=== PATIENT | female | born 1980 | race Two or more races ===

== ENCOUNTER 2025-02-18 20:45 | Emergency (ER) | payer BC, SELFPAY ==
[2025-02-18 20:46] VITALS: BMI 43.2
[2025-02-18 20:54] VITALS: BP 185/110; BP 190/113; PULSE 100; RESP 20; TEMP 36.8; O2SAT 97
--- NOTE | 2025-02-18 20:59 | XR_ITS ---
Examination: Soft tissue lateral neck single view Technique: Soft tissue lateral neck single view Exam date and time: February 18, 2025 2213 hrs. Indications: Patient swallowed a toothpick today Findings: No opaque foreign body noted Normal epiglottis Mild prevertebral soft tissue prominence Impression: No opaque foreign body seen
--- NOTE | 2025-02-18 21:00 | PD.EDRME ---
Rapid Medical Screening Exam RME Arrival date/time: 02/18/25 20:45 44 yo f present to ED for c/o of swallowing toothpick I have greeted and performed a focused initial assessment of this patient. A comprehensive ED assessment and evaluation of the patient, analysis of all test results, and completion of the medical decision making process will be conducted by additional ED providers. Chief Complaint: Dental/Oral/Throat Time Seen by Provider: 02/18/25 20:51 Vital signs: Vital Signs Temperature 98.3 F 02/18/25 20:54 Pulse Rate 100 02/18/25 20:54 Respiratory Rate 20 02/18/25 20:54 Blood Pressure 190/113 H 02/18/25 20:54 Pulse Oximetry (%) 97 02/18/25 20:54
--- NOTE | 2025-02-18 21:41 | PRELIM_ITS ---
Radiograph of the neck (single view). February 18, 2025 at 2207 hours Clinical history: Swallow foreign body Comparison: No prior study is available for comparison. Findings: The visualized airway is unremarkable. There is no prevertebral soft tissue swelling. The osseous structures are unremarkable. No radiopaque foreign bodies identified. Impression: Unremarkable radiograph of the neck. No radiopaque foreign bodies identified. Report Electronically Signed By: Hamilton Mendez 02/18/2025 9:40:09 PM [EST]
--- NOTE | 2025-02-19 00:59 | PD.EDADULT ---
ED General RME/HPI General Chief complaint: Dental/Oral/Throat Stated complaint: toothpick in throat Time Seen by Provider: 02/18/25 20:51 Arrival date/time: 02/18/25 20:45 44-year-old female presents to the ED with a chief complaint of right-sided neck foreign body sensation. Patient states through print room worker that she swallowed half a toothpick while eating a sausage. She states her puts half of a toothpick in each corner of the sausage. She immediately felt the foreign body sensation after she swallowed the bite of sausage. She has been having a tickle type cough ever since. The injury occurred just prior to her arrival. She does have painful swallowing of water. Mode of arrival: ambulatory Limitations: language barrier (Human Anatomy Teacher line utilized.) RME / HPI RME / HPI narrative: 02/18/25 20:45 44 yo f present to ED for c/o of swallowing toothpick I have greeted and performed a focused initial assessment of this patient. A comprehensive ED assessment and evaluation of the patient, analysis of all test results, and completion of the medical decision making process will be conducted by additional ED providers. Onset (ago): minute(s) (Prior to arrival) Location: mouth (Throat) Quality: sharp and constant Consistency: constant Relieving factors: none Exacerbating factors: other (Swallowing) Associated symptoms: cough Treatments prior to arrival: none Related Data Previous Rx's ?Medication ?Instructions ?Recorded aluminum-mag hydroxide-simethicone 10 ml PO Q4H #120 mL 02/19/21 200 mg-200 mg-20 mg/5 mL oral susp famotidine 40 mg tablet (Pepcid) 40 mg PO QDAY #14 tabs 02/19/21 albuterol sulfate 90 mcg/actuation 2 puff inhalation Q6H PRN 02/19/24 aerosol inhaler shortness of breath or wheezing #8.5 grams prednisone 50 mg tablet 50 mg PO QDAY #5 tabs 02/19/24 albuterol sulfate 90 mcg/actuation 2 inh inhalation Q6H #1 ea 03/13/24 breath activated powder inhaler,sensor (Proair Digihaler) montelukast 10 mg tablet 10 mg PO QPM #30 tabs 03/13/24 (Singulair) prednisone 50 mg tablet 50 mg PO QDAY #5 tabs 03/13/24 Allergies Allergy/AdvReac Type Severity Reaction Status Date / Time No Known Allergies Allergy Verified 02/18/25 20:51 Review of Systems Review of Systems Systems Reviewed: All systems reviewed, normal except as documented ED Exam Narrative Physical exam: Healthy, well-appearing 44-year-old female sitting on bed. She has a tickle type cough noted. She points to the right side of her neck for the location of her discomfort. Lungs are clear, cardiovascular regular rate and rhythm without murmurs. No stridor is noted. Throat exam reveals mild erythema to the posterior pharynx. No bleeding is noted. General Limitations: Present language barrier (Human Anatomy Teacher line utilized.) General appearance: Present alert and in no apparent distress Head Head exam: Present atraumatic and normal inspection Eye Eye exam: Present normal appearance, scleral icterus and conjunctival injection ENT ENT exam: Present normal exam Neck Neck exam: Present normal inspection, trachea midline and tenderness; Absent lymphadenopathy Chest Chest inspection: Present normal inspection Respiratory Respiratory exam: Present normal lung sounds bilaterally; Absent respiratory distress, wheezes or stridor Cardiovascular Cardiovascular exam: Present regular rate, normal rhythm and normal heart sounds; Absent systolic murmur or diastolic murmur Abdominal Exam Abdominal exam: Absent distention Extremities Exam Extremities exam: Present normal inspection Back Exam Back exam: Present full ROM Neurological Exam Neurological exam: Present alert and oriented X3 Psychiatric Psychiatric exam: Present normal affect and normal mood Skin Skin exam: Present warm, dry, intact and normal color Course Course Course Narrative: 44-year-old female presents to the ED with a chief complaint of right-sided neck foreign body sensation. Patient states through print room worker that she swallowed half a toothpick while eating a sausage. She states her puts half of a toothpick in each corner of the sausage. She immediately felt the foreign body sensation after she swallowed the bite of sausage. She has been having a tickle type cough ever since. The injury occurred just prior to her arrival. She does have painful swallowing of water. Healthy, well-appearing 44-year-old female sitting on bed. She has a tickle type cough noted. She points to the right side of her neck for the location of her discomfort. Lungs are clear, cardiovascular regular rate and rhythm without murmurs. No stridor is noted. Throat exam reveals mild erythema to the posterior pharynx. No bleeding is noted. X-ray soft tissue neck: Unremarkable radiograph of the neck. No radiopaque foreign bodies identified. CT soft tissue neck without contrast has been ordered and pending. Quality Measures none Orders Category Date Time Status CT soft tissue neck wo con Stat Exams 02/19/25 00:57 Ordered XR soft tissue neck Stat Exams 02/18/25 20:59 Taken Vital Signs Vital signs: Vital Signs Temperature 98.3 F 02/18/25 20:54 Pulse Rate 100 02/18/25 20:54 Respiratory Rate 20 02/18/25 20:54 Blood Pressure 190/113 H 02/18/25 20:54 Pulse Oximetry (%) 97 02/18/25 20:54 [facility] Patient data External records reviewed:: None Clinical information provided by:: patient Social determinants that could affect healthcare access:: none Patient has the following chronic illnesses:: How is presenting disease/condition affected by chronic disease/condition?: no chronic disease Evaluation data The following diagnostics were reviewed and interpreted by me:: radiology exam(s) Lab and/or radiology exams considered but not ordered:: None Interpretation Summary: X-ray neck soft tissue negative for acute foreign body. Medications Medications considered but not ordered:: None Medication administrations:: None Consultations Consultation(s) initiated? (list below): No Diagnosis Differential Diagnosis ED Complaint MDM: Wooden foreign body swallowed versus foreign body sensation Most likely diagnosis given after review of the tests above:: Foreign body swallowed Admission Indicated Admission indicated?: not indicated (Unknown) Explain why admission is indicated or not indicated:: Unknown Admission Request Was there a request for admission?: No Disposition Plan Disposition Plan: other (specify) (Unknown at this time.) Medical Decision Making MDM Narrative MDM Narrative: 44-year-old female presents to the ED with a chief complaint of right-sided neck foreign body sensation. Patient states through print room worker that she swallowed half a toothpick while eating a sausage. She states her puts half of a toothpick in each corner of the sausage. She immediately felt the foreign body sensation after she swallowed the bite of sausage. She has been having a tickle type cough ever since. The injury occurred just prior to her arrival. She does have painful swallowing of water. Healthy, well-appearing 44-year-old female sitting on bed. She has a tickle type cough noted. She points to the right side of her neck for the location of her discomfort. Lungs are clear, cardiovascular regular rate and rhythm without murmurs. No stridor is noted. Throat exam reveals mild erythema to the posterior pharynx. No bleeding is noted. X-ray soft tissue neck: Unremarkable radiograph of the neck. No radiopaque foreign bodies identified. CT soft tissue neck without contrast has been ordered and pending. Sign out to jacqueline Lewis 2:45am. Differential Diagnosis Differential Diagnosis: Wooden foreign body swallowed versus foreign body sensation Radiology Data Radiology results reviewed: Yes I reviewed the patient's radiology results. Radiology results narrative: X-ray neck, soft tissue findings: The visualized airway is unremarkable. There is no prevertebral soft tissue swelling. The osseous structures are unremarkable. No radiopaque foreign bodies identified. Impression: Unremarkable radiograph of the neck. No radiopaque foreign bodies identified. Discharge Plan Prescriptions/Referrals Prescriptions/Med Rec: No Action famotidine [Pepcid] 40 mg tablet 40 mg PO QDAY Qty: 14 0RF alum-mag hydroxide-simeth 200-200-20 mg/5 mL suspension 10 ml PO Q4H Qty: 120 0RF Rx Instructions: administer between meals and at bedtime albuterol sulfate 90 mcg/actuation HFA aerosol inhaler 2 puff inhalation Q6H PRN (Reason: shortness of breath or wheezing) Qty: 8.5 0RF prednisone 50 mg tablet 50 mg PO QDAY Qty: 5 0RF Proair Digihaler 90 mcg/actuation aero powdr breath act w/sensor 2 inh inhalation Q6H Qty: 1 0RF prednisone 50 mg tablet 50 mg PO QDAY Qty: 5 0RF montelukast [Singulair] 10 mg tablet 10 mg PO QPM Qty: 30 0RF Referrals: No Primary/Family,Physician [Primary Care Provider] - In 1 week Patient/Caregiver Discharge Instructions Print Language: Citizen Of [place]
--- NOTE | 2025-02-19 03:39 | PC.NURSE ---
PATIENT ELOPED THE ER PER SECURITY.
--- NOTE | 2025-02-19 03:48 | PD.EDADDENDU ---
Emergency Room Addendum Addendum Narrative: This Patient WAS NOT Signed out to me at 0245 and signed out toe CHANTEL Blackman. 0349: The Nurse reported to me the patient is no where top be found . We have called CT to see if the patient was in CT, and the patient is not there as per DAISHA Jimenez.
== END 2025-02-19 03:40 | disposition left against medical advice (07) ==
PROVIDERS: Emergency Provider Emergency Medicine
DX: R09.A2 Foreign body sensation, throat (principal); Z53.29 Procedure and treatment not carried out because of patient's decision for other reasons
CPT/HCPCS: 70360; 99283

== ENCOUNTER 2025-04-24 18:09 | Inpatient (IN) | payer MEDICAID, SELFPAY ==
[2025-04-24 18:10] VITALS: BMI 41.3
[2025-04-24 18:40] VITALS: BP 186/118; BP 199/110; PULSE 73; RESP 18; TEMP 36.8; O2SAT 100
--- NOTE | 2025-04-24 19:32 | XR_ITS ---
Examination: CT abdomen with intravenous contrast CT pelvis with intravenous contrast 2-D coronal reconstructions 2-D sagittal reconstructions Date and time of exam:April 24, 2025 2044 hours INDICATIONS: Epigastric pain beginning 2 days ago COMPARISON: January 11, 2016. CTDI: vol (mGy) 12.4 DLP: (mGycm) 635 Technique: Multiple axial sections of the abdomen and pelvis have been obtained. 64 slice high-resolution scanner used. 3 mm axial sections have been obtained, post intravenous injection 60 cc [id number] 2-D sagittal, coronal reconstructions obtained. Low dose protocols were performed. One or more of the following dose reduction techniques were used; automated exposure control, adjustment of the mA and/or KV according to patient size, use of iterative reconstruction technique. Findings: No focal liver or splenic lesions 27 mm upper abdominal wall hernia defect containing incarcerated fat No pancreatic mass Absent gallbladder No extrahepatic biliary ductal dilatation No renal or ureteral calculi, no hydronephrosis No bowel obstruction Normal appendix No diverticulitis Anteverted uterus No adnexal mass No bladder mass or bladder calculi The osseous structures are intact IMPRESSION: 27 mm upper abdominal wall hernia defect containing incarcerated fat No extrahepatic biliary ductal dilatation Normal appendix
--- NOTE | 2025-04-24 19:33 | PD.EDRME ---
Rapid Medical Screening Exam RME Arrival date/time: 04/24/25 18:09 44F with history of HTN and cholecystectomy presents to ED with 2 days of epigastric pain. Patient went sent here to r/o hernia. Patient denies N/V, diarrhea, and dysuria/hematuria. Patient is currently on her period. . Chief Complaint: Abdominal Pain Time Seen by Provider: 04/24/25 21:36 Vital signs: Vital Signs Temperature 98.2 F 04/24/25 18:40 Pulse Rate 73 04/24/25 18:40 Respiratory Rate 18 04/24/25 18:40 Blood Pressure 199/110 H 04/24/25 18:40 Pulse Oximetry (%) 100 04/24/25 18:40 Oxygen Delivery Method Room Air 04/24/25 18:40 Vital signs reviewed by provider: Yes
[2025-04-24 19:54] LABS: Collection Type, Urine Clean Catch
[2025-04-24 19:57] LABS: Bilirubin,Urine 1+ (Negative); Blood,Urine 3+ (Negative); Clarity,Urine Clear (Clear/Hazy); Color,Urine Drk Red (Lt Yel-Yel); Glucose, Urine Negative (Negative); Ketones,Urine Trace (Negative); Leukocyte Esterase,Urine Trace (Negative); Nitrite,Urine Positive (Negative); PH,Urine 5.5 (5.0-7.0); Protein,Urine 2+ (Neg - Trace); Specific Gravity,Urine >= 1.030 (1.001-1.035)
[2025-04-24 19:58] LABS: Culture Indicated,Urine Yes
[2025-04-24 20:00] LABS: Amorphous Crystals,Urine Present (Absent); RBC,Urine 9050 /hpf (0-3); Squamous Epithelial Cell,Urine 8 /hpf (0-5); WBC,Urine 3 /hpf (0-5)
[2025-04-24 20:05] LABS: HCG Qualitative,Urine Negative
[2025-04-24 20:39] LABS: Basophils # (Auto) 0.1 Thou/mm3 (0.0-0.2); Basophils % (Auto) 1 % (0-2.5); Eosinophils # (Auto) 0.2 Thou/mm3 (0.0-0.5); Eosinophils % (Auto) 2 % (0-10); Hematocrit 36.4 % (36.0-46.0); Hemoglobin 12.4 g/dL (12.0-16.0); Immature Granulocytes % (Auto) 0 % (0-0); Immature Granulocytes Auto 0.04 Thou/mm3 (0.00-0.00); Lymphocytes # (Auto) 3.3 Thou/mm3 (1.0-4.8); Lymphocytes % (Auto) 29 % (10-50); Mean Corpuscular HGB Conc 34.1 g/dl (31.0-37.0); Mean Corpuscular Volume 85 fL (80-100); Monocytes % (Auto) 9 % (0-12); Neutrophils # (Auto) 6.8 Thou/mm3 (1.8-7.7); Neutrophils % (Auto) 59 % (37-80); Nucleated Red Blood Cell % 0 /100 WBC (0); Platelet Count 317 Thou/mm3 (140-440); RDW Standard Deviation 41.1 fL (36.4-46.3); Red Blood Count 4.28 Miln/mm3 (4.00-5.20); White Blood Count 11.5 Thou/mm3 (3.6-11.0)
[2025-04-24 20:54] LABS: Alanine Aminotransferase 26 U/L (10-49); Albumin, Serum 4.7 gm/dL (3.5-5.0); Albumin/Globulin Ratio 1.7 (1.2-2.2); Alkaline Phosphatase 169 U/L (46-116); Anion Gap 9 (7-16); Aspartate Amino Transferase 26 U/L (0-34); BUN/Creatinine Ratio 21 Ratio (12-20); Bilirubin,Total 0.4 mg/dL (0.3-1.2); Blood Urea Nitrogen 15 mg/dL (9-23); Calcium 9.8 mg/dL (8.3-10.6); Calcium (Corrected) 9.8 mg/dL (8.5-10.1); Carbon Dioxide 25.9 mMol/L (20.0-31.0); Chloride 104 mMol/L (98-107); Creatinine (Component) 0.7 mg/dL (0.6-1.3); Estimated Creatinine Clearance 103.2 mL/min (>60); Globulin 2.8 gm/dL (2.3-3.5); Glucose 101 mg/dL (74-106); Lipase 36 U/L (12-53); Osmolality,Calculated 278 (275-295); Potassium 3.6 mMol/L (3.4-5.1); Sodium 139 mMol/L (136-145); Total Protein 7.5 gm/dL (5.7-8.2); eGFR > 60 See Note
--- NOTE | 2025-04-24 21:45 | PC.NURSE ---
Continuous Conveyor Screen Drier assumes care of patient at this time, pt c/o epigastric pain x 2 days with N/V reported, pt denies any trauma and rates pain 07/18
[2025-04-24 21:51] VITALS: BP 165/115; PULSE 70; RESP 18; TEMP 36.7; O2SAT 100
--- NOTE | 2025-04-24 22:11 | PD.EDABDPN ---
ED Abdominal Pain RME/HPI General Chief Complaint: Abdominal Pain Stated complaint: ABD PAIN; SENT BY PCP FOR POSS HERNIA Time seen by provider: 04/24/25 21:36 Arrival date/time: 04/24/25 18:09 Source: patient Limitations: no limitations RME / HPI RME / HPI narrative: 04/24/25 18:09 44F with history of HTN and cholecystectomy presents to ED with 2 days of epigastric pain. Patient went sent here to r/o hernia. Patient denies N/V, diarrhea, and dysuria/hematuria. Patient is currently on her period. She has no fevers or chills. She states she is not experienced before. Related Data Previous Rx's ?Medication ?Instructions ?Recorded aluminum-mag hydroxide-simethicone 10 ml PO Q4H #120 mL 02/19/21 200 mg-200 mg-20 mg/5 mL oral susp famotidine 40 mg tablet (Pepcid) 40 mg PO QDAY #14 tabs 02/19/21 albuterol sulfate 90 mcg/actuation 2 puff inhalation Q6H PRN 02/19/24 aerosol inhaler shortness of breath or wheezing #8.5 grams prednisone 50 mg tablet 50 mg PO QDAY #5 tabs 02/19/24 albuterol sulfate 90 mcg/actuation 2 inh inhalation Q6H #1 ea 03/13/24 breath activated powder inhaler,sensor (Proair Digihaler) montelukast 10 mg tablet 10 mg PO QPM #30 tabs 03/13/24 (Singulair) prednisone 50 mg tablet 50 mg PO QDAY #5 tabs 03/13/24 Allergies Allergy/AdvReac Type Severity Reaction Status Date / Time No Known Allergies Allergy Verified 04/24/25 18:12 Review of Systems Review of Systems Systems Reviewed: All systems reviewed, normal except as documented ED Exam General Limitations: Present no limitations General appearance: Present alert and in distress Head Head exam: Present atraumatic Eye Eye exam: Present normal appearance, PERRL and EOMI ENT ENT exam: Present normal exam, normal oropharynx and mucous membranes moist Neck Neck exam: Present normal inspection, full ROM and trachea midline Chest Chest inspection: Present normal inspection and symmetric chest wall rise Respiratory Respiratory exam: Present normal lung sounds bilaterally Cardiovascular Cardiovascular exam: Present regular rate, normal rhythm and normal heart sounds Abdominal Exam Abdominal exam: Present soft, normal bowel sounds and other (There is a 4 to 5 cm firm mass at the midline of the ventral region that is tender. No warmth is appreciated. This was not reducible.) Extremities Exam Extremities exam: Present normal inspection and full ROM Back Exam Back exam: Present normal inspection and full ROM Neurological Exam Neurological exam: Present alert, oriented X3 and CN II-XII intact Psychiatric Psychiatric exam: Present normal affect and normal mood Skin Skin exam: Present warm, dry, intact and normal color Course Quality Measures none Orders Category Date Time Status Aspiration precautions NOW Care 04/24/25 22:08 Active COVID-19 Screening Questionnaire NOW Care 04/24/25 22:[address] Screening NOW Care 04/24/25 19:33 Active Decision to Admit X1 Care 04/24/25 22:08 Active Insert IV NOW Care 04/24/25 19:32 Active NPO NOW Care 04/24/25 22:08 Active Diet NPO (NOW) Diet 04/24/25 22:[address] abdomen pelvis w con Stat Exams 04/24/25 19:32 Completed CBC Stat Lab 04/24/25 20:23 Completed CMP [Comprehensive Metabolic Panel] Stat Lab 04/24/25 20:23 Completed HCG Qualitative,Urine Stat Lab 04/24/25 19:47 Completed Lactic Acid [Lactate (Lactic Acid)] Stat Lab 04/24/25 21:29 Ordered Lipase Stat Lab 04/24/25 20:23 Completed Urinalysis, C/S if Indicated Stat Lab 04/24/25 19:47 Completed Urine Culture Stat Lab 04/24/25 19:47 Received Vital Signs Vital signs: Vital Signs Temperature 98.2 F 04/24/25 18:40 Pulse Rate 73 04/24/25 18:40 Respiratory Rate 18 04/24/25 18:40 Blood Pressure 199/110 H 04/24/25 18:40 Pulse Oximetry (%) 100 04/24/25 18:40 Oxygen Delivery Method Room Air 04/24/25 18:40 Abdominal Pain MDM MDM Narrative MDM Narrative:: 44-year-old female with a remote history of cholecystectomy in 2010 and a history hypertensions here to the 1 day history of nausea, no vomiting, and abdominal pain. She has no urinary complaints. No fevers or chills. On exam patient is ill-appearing but nontoxic-appearing. She has a Nonreducible mass at the midline of her abdomen. Serum workup essentially unremarkable. CT findings are concerning for incarcerated fat-containing hernia. Dr. Anne was consulted and would like the patient admitted to medicine. Will keep her NPO. Case discussed with internal medicine except the patient. Patient data External records reviewed:: Other (specify) Clinical information provided by:: patient Social determinants that could affect healthcare access:: none Patient has the following chronic illnesses:: Hypertension How is presenting disease/condition affected by chronic disease/condition?: no chronic disease Evaluation data The following diagnostics were reviewed and interpreted by me:: lab results and radiology exam(s) (No bowel obstruction. There is a fat-containing ventral hernia.) Lab and/or radiology exams considered but not ordered:: No leukocytosis or lactic acidosis Interpretation Summary: Radiology report is concerning for fat-containing incarcerated hernia. Medications / Prescriptions Medications or Prescriptions considered but not ordered:: n/a Medication administrations:: Morphine, Zofran Consultations Consultation(s) initiated? 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 Discussed patients ED course, exam findings, labs, and radiology results. The Hospitalist [agrees,declines] to accept the patient for admission. Disposition Plan Disposition Plan: Admit Discharge Plan Plan Patient Disposition: Admit Acute Care w/in Hospital Patient condition on transfer: Stable Prescriptions/Referrals Prescriptions/Med Rec: No Action famotidine [Pepcid] 40 mg tablet 40 mg PO QDAY Qty: 14 0RF alum-mag hydroxide-simeth 200-200-20 mg/5 mL suspension 10 ml PO Q4H Qty: 120 0RF Rx Instructions: administer between meals and at bedtime albuterol sulfate 90 mcg/actuation HFA aerosol inhaler 2 puff inhalation Q6H PRN (Reason: shortness of breath or wheezing) Qty: 8.5 0RF prednisone 50 mg tablet 50 mg PO QDAY Qty: 5 0RF Proair Digihaler 90 mcg/actuation aero powdr breath act w/sensor 2 inh inhalation Q6H Qty: 1 0RF prednisone 50 mg tablet 50 mg PO QDAY Qty: 5 0RF montelukast [Singulair] 10 mg tablet 10 mg PO QPM Qty: 30 0RF Referrals: Favio Pugh MD [Primary Care Provider] - In 1 week Problem List Clinical Impression: Abdominal pain, Incarcerated hernia Patient/Caregiver Discharge Instructions Print Language: Nepali Stand Alone Forms: Delia Award Info., Patient Portal Info Letter
[2025-04-24 22:16] LABS: Lactate (Lactic Acid) 1.2 mMol/L (0.4-2.0)
--- NOTE | 2025-04-24 22:40 | ESHP_ITS ---
<Statement entered by Qi Horn MD - 04/25/25 00:07> I Qi Horn MD reviewed the note and agree with the resident's assessment & plan with exceptions as below. I have personally reviewed labs, imaging, home meds/prior records, examined the patient, formulated and discussed management plan with the IM team. A 44-year-old female with history of asthma presented with abdominal pain noted to have incarcerated abdominal wall hernia and hypertension. General surgery is consulted and plan for hernia repair likely tomorrow. Will provide IV fluid resuscitation, keep n.p.o. overnight except meds, empirically treat with Rocephin and metronidazole with adequate pain control with IV morphine. Documentation for date of: 04/24/25 HPI History of Present Illness Chief complaint: Abdominal pain History of present illness: 44-year-old female with past medical history of hypertension who presented to the ED due to abdominal pain. Patient states that she has been having abdominal pain since Wednesday, April 21, 2025 that has progressively gotten worse. She states that currently the pain is rated a 9 out of 10 with profuse tenderness to even light palpation. Patient denies nausea and vomiting however does endorse some subjective chills. She states her last bowel movement and last meal was 04/24/2025, denies any blood in the stool. Patient denies any fever, shortness of breath, chest pain, nausea, vomiting, recent travel, sick contacts. In the ED patient had CT scan done which showed 27 mm upper abdominal wall hernia defect containing incarcerated fat, ER spoke to general surgeon Dr. Anne who recommended admission for possible surgical intervention. ED course: ED vitals: BP 199/110, HR 73, RR 18, saturating 100% on room air ED labs: Leukocytosis, alk phos 169, UA shows positive nitrites 3+ blood with [address] abdomen/pelvis showed 27 mm upper abdominal wall hernia defect containing incarcerated fat PMHx: As above SX Hx: Cholecystectomy Social Hx: Denies cigarette use, denies alcohol use, denies illicit substances including THC FH X: Unknown Review of Systems Review of Systems Systems Reviewed: All systems reviewed, normal except as documented Narrative Review of Systems: All 12 systems reviewed and found negative unless otherwise stated in HPI. Exam Vital Signs Temp Pulse Resp BP Pulse Ox O2 Del Method 98.0 F 70 18 165/115 H 100 Room Air 04/24/25 21:51 04/24/25 21:51 04/24/25 21:51 04/24/25 21:51 04/24/25 21:51 04/24/25 21:51 Narrative Exam Physical Exam GENERAL: NAD, AAOx3 HEENT: Moist mucosa. Eyes open, symmetrical, & clear CARDIO: Heart RRR, no obvious murmurs PULM: No noted coughing/dyspnea CTA B/L, no R/W/R GI: Abdomen soft, nondistended, diffuse pain on light palpation SKIN/MSK/EXT: No wounds/rashes/edema/amputations, no pain on palpation. Pedal pulses present B/L NEURO: AAOx3, no focal neuro deficits, able to move all 4 extremities Results: Labs 04/24/25 20:23 04/24/25 20:23 Labs: Short CBC 04/24/25 Range/Units 20:23 WBC 11.5 H (3.6-11.0) Thou/mm3 Hgb 12.4 (12.0-16.0) g/dL Hct 36.4 (36.0-46.0) % Plt Count 317 (140-440) Thou/mm3 BMP 04/24/25 20:23 Sodium 139 Potassium 3.6 Chloride 104 Carbon Dioxide 25.9 BUN 15 Creatinine 0.7 Glucose 101 Calcium 9.8 Liver Function 04/24/25 Range/Units 20:23 Total Bilirubin 0.4 (0.3-1.2) mg/dL AST 26 (0-34) U/L ALT 26 (10-49) U/L Alkaline Phosphatase 169 H (46-116) U/L Albumin 4.7 (3.5-5.0) gm/dL Urine 04/24/25 Range/Units 19:47 Urine Color Drk Red A (Lt Yel-Yel) Urine Clarity Clear (Clear/Hazy) Urine pH 5.5 (5.0-7.0) Ur Specific [place] >= 1.030 (1.001-1.035) Urine Protein 2+ A (Neg - Trace) Urine Glucose (UA) Negative (Negative) Quality Measures Quality Measures none Medications Home Medications and Allergies Allergies Allergy/AdvReac Type Severity Reaction Status Date / Time No Known Allergies Allergy Verified 04/24/25 18:12 Visit Medications Acetaminophen (Acetaminophen 325 Mg Tablet) 650 mg PO Q6H PRN PRN Reason: Fever >99.5 Stop: 05/24/25 22:31 Acetaminophen (Acetaminophen 325 Mg Tablet) 1,000 mg PO Q6H PRN PRN Reason: PAIN SCALE 1-3 (mild Stop: 05/24/25 22:31 Sodium Chloride (Ns) 1,000 mls @ 75 mls/hr IV .[id number] SEA Stop: 05/24/25 22:44 Ondansetron HCl (Ondansetron Inj 2 Mg/Ml Inj 2 Ml) 4 mg IVP Q6H PRN; Protocol PRN Reason: NAUSEA OR VOMITING Stop: 05/24/25 22:31 Pantoprazole Sodium (Pantoprazole Inj 40 Mg Vial) 40 mg IVP QDAY [facility] Stop: 05/25/25 08:59 Assessment & Plan Plan 44-year-old female with past medical history of hypertension who presented to the ED due to abdominal pain. In the ED patient had CT scan done which showed 27 mm upper abdominal wall hernia defect containing incarcerated fat, ER spoke to general surgeon Dr. Anne who recommended admission for possible surgical intervention. #Upper abdominal wall hernia defect containing incarcerated fat Patient came in with 9 out of 10 abdominal pain getting worse with some subjective chills As per CT scan findings ED spoke to general surgery who recommended keep n.p.o. for possible surgical intervention Patient is passing flatus and having bowel movements denies nausea vomiting does endorse chills ? N.p.o. ? IV fluids at 75 cc/h ? Morphine for pain control ? General Surgery consulted, appreciate recs #Hypertension At this time likely secondary to pain ? Med rec ordered resume antihypertensives as tolerated and reconciled Health Maintenance: Disposition: MedSurg Fluids: NS Feeding: N.p.o. Thrombo prophylaxis: SCDs Gastric Ulcer prophylaxis: Pantoprazole CODE STATUS: Full code Case discussed with my attending Dr. Kory Pugh MD PGY-1 Disclaimer: Despite multiple revisions, due to the dictation software being used, the document bellow may not be free of grammatical errors including phonetic/typographic errors. However, this does not deter from our commitment to providing health care in the patient's best interest in mind.
[2025-04-24] MEDS: MORPHINE SULF INJ 10 MG/ML VIAL 2 MG IVP (22:57)
[2025-04-24] MEDS: SODIUM CHLORIDE 0.9% 1000 ML 1,000 ML 75 ML IV (22:57)
[2025-04-24] MEDS: ONDANSETRON INJ 2 MG/ML INJ 2 ML 4 MG IVP (22:58)
[2025-04-25] VITALS (21 sets, daily range): BP systolic 129–179; BP diastolic 79–98; PULSE 66–101; RESP 16–98; TEMP 36.1–36.7; O2SAT 92–100
--- NOTE | 2025-04-25 00:36 | PC.NURSE ---
Report called to floor nurse, GERA Haskins
[2025-04-25] MEDS: hydrALAZINE INJ 20 MG/ML VIAL 10 MG IVP (00:57)
[2025-04-25] MEDS: HYDROmorphone INJ 2 MG/ML VIAL 0.5 MG IVP (02:15)
[2025-04-25 05:42] LABS: Basophils # (Auto) 0.1 Thou/mm3 (0.0-0.2); Basophils % (Auto) 1 % (0-2.5); Eosinophils % (Auto) 0 % (0-10); Hematocrit 37.9 % (36.0-46.0); Hemoglobin 12.7 g/dL (12.0-16.0); Immature Granulocytes % (Auto) 1 % (0-0); Immature Granulocytes Auto 0.07 Thou/mm3 (0.00-0.00); Lymphocytes # (Auto) 1.6 Thou/mm3 (1.0-4.8); Lymphocytes % (Auto) 12 % (10-50); Mean Corpuscular HGB Conc 33.5 g/dl (31.0-37.0); Mean Corpuscular Volume 87 fL (80-100); Monocytes # (Auto) 0.8 Thou/mm3 (0.0-0.8); Monocytes % (Auto) 6 % (0-12); Neutrophils # (Auto) 10.8 Thou/mm3 (1.8-7.7); Neutrophils % (Auto) 81 % (37-80); Nucleated Red Blood Cell % 0 /100 WBC (0); Platelet Count 307 Thou/mm3 (140-440); RDW Standard Deviation 41.4 fL (36.4-46.3); Red Blood Count 4.38 Miln/mm3 (4.00-5.20); White Blood Count 13.3 Thou/mm3 (3.6-11.0)
[2025-04-25 06:06] LABS: Alanine Aminotransferase 69 U/L (10-49); Albumin, Serum 4.2 gm/dL (3.5-5.0); Albumin/Globulin Ratio 1.4 (1.2-2.2); Alkaline Phosphatase 209 U/L (46-116); Anion Gap 10 (7-16); Aspartate Amino Transferase 120 U/L (0-34); BUN/Creatinine Ratio 13 Ratio (12-20); Bilirubin,Total 0.9 mg/dL (0.3-1.2); Blood Urea Nitrogen 8 mg/dL (9-23); Calcium 8.7 mg/dL (8.3-10.6); Calcium (Corrected) 8.7 mg/dL (8.5-10.1); Carbon Dioxide 23.3 mMol/L (20.0-31.0); Chloride 104 mMol/L (98-107); Creatinine (Component) 0.6 mg/dL (0.6-1.3); Estimated Creatinine Clearance 120.5 mL/min (>60); Globulin 2.9 gm/dL (2.3-3.5); Glucose 154 mg/dL (74-106); Magnesium 1.8 mg/dL (1.6-2.6); Osmolality,Calculated 275 (275-295); Phosphorous 2.5 mg/dL (2.4-5.1); Potassium 3.9 mMol/L (3.4-5.1); Sodium 137 mMol/L (136-145); Total Protein 7.1 gm/dL (5.7-8.2); eGFR > 60 See Note
--- NOTE | 2025-04-25 07:04 | PD.SURCONS ---
HPI Consult details Consult date: 04/25/25 Reason for consultation narrative: Incarcerated ventral hernia History of present illness: 44-year-old obese female with history of hypertension presented to the emergency department with worsening abdominal pain. Her pain started 3 days ago and midepigastrium and has been getting progressively worse. She has noted a lump that she has not been able to reduce. She denies nausea, vomiting, fever or chills. CT scan revealed ventral hernia with incarcerated fat. Review of Systems Constitutional Constitutional: Denies chills and Denies fever(s) Cardiovascular Cardiovascular: Denies chest pain Respiratory Respiratory: Denies cough Gastrointestinal Gastrointestinal: Reports abdominal pain, Denies nausea and Denies vomiting Genitourinary Genitourinary: Denies difficulty voiding Hematologic/Lymphatic Hematologic/Lymphatic: Denies easy bleeding and Denies easy bruising Past Medical History Surgical History OTHER SURGICAL HX: Laparoscopic cholecystectomy Social History SMOKING STATUS: Never smoker SUBSTANCE USE: does not use ALCOHOL: Never Meds Home Medications and Allergies Allergies Allergy/AdvReac Type Severity Reaction Status Date / Time No Known Allergies Allergy Verified 04/24/25 18:12 Exam Vital Signs Temp Pulse Resp BP Pulse Ox O2 Del Method 97.5 F 87 16 147/79 H 97 Room Air 04/25/25 04:00 04/25/25 04:00 04/25/25 04:00 04/25/25 04:00 04/25/25 04:00 04/25/25 04:00 Constitutional Constitutional: no acute distress Routine Abdominal Exam Comments: Midepigastric ventral hernia that is incarcerated and very tender to touch. No erythema or overlying skin changes at this time Results Results: Laboratory Laboratory results: results reviewed Results: Imaging CT scan - abdomen: report reviewed and image reviewed CT scan - pelvis: report reviewed and image reviewed Assessment & Plan Problem List (1) Other and unspecified ventral hernia with obstruction, without gangrene: Status: Acute Plan Will take patient to the operating room for repair of ventral hernia. Risks include but not limited to infection, bleeding, injury to surround neurovascular structures, recurrence of hernia, pneumonia and blood clot discussed with the patient via software requirements engineer. Benefits and alternatives explained to her, all her questions answered, she agreed and consented to proceed with the operation.
[2025-04-25] MEDS: PANTOPRAZOLE INJ 40 MG VIAL IVP (08:01)
--- NOTE | 2025-04-25 09:46 | PD.RESPRO ---
Documentation for date of: 04/25/25 Subjective Subjective Interval history: Overnight admission for incarcerated hernia for which patient went to the OR. Seen and examined at bedside and states that her pain is 8/10 in intensity but does not appear uncomfortable. However, states that morphine has caused her to have chest pain and asking for alternative IV pain medication and will switch to dilaudid at this time. WBC slightly up trended from 11 to 13 but no fevers recorded, otherwise CBC unremarkable. CHEM panel showed that T. bili increased from 0.4 to 0.9, AST increased from 26 to 120, ALT increased from 26 to 69, ALP increased from 169 to 209. Initial BP 199/110, patient takes hydrochlorothiazide at home and will resume after surgery but otherwise has as needed hydralazine. Exam Vital Signs Temp Pulse Resp BP Pulse Ox O2 Del Method 97.7 F 86 18 163/98 H 97 Room Air 04/25/25 08:10 04/25/25 08:10 04/25/25 08:10 04/25/25 08:10 04/25/25 08:10 04/25/25 08:10 Narrative Exam General: AOx3, no acute distress, able to speak full sentences HEENT: NC/AT, mucous membranes moist, bilateral sclera anicteric Cardiovascular: regular rate and rhythm, S1/S2 present, no murmurs appreciated Pulmonary: clear to auscultation bilaterally, no rales/rhonchi/wheezes Abdominal: abdominal incision with dressings, non-distended Musculoskeletal: normal ROM, no peripheral edema Skin: warm and dry, intact, no rashes Neuro: CN II-XII intact, no focal deficits Objective Labs 04/25/25 05:04 04/25/25 05:04 Labs: Laboratory Results - last 24 hr 04/24/25 04/24/25 04/24/25 19:47 20:23 22:04 WBC 11.5 H RBC 4.28 Hgb 12.4 Hct 36.4 MCV 85 MCH 29.0 MCHC 34.1 RDW Std Deviation 41.1 Plt Count 317 Neut % (Auto) 59 Lymph % (Auto) 29 [place] % (Auto) 9 Eos % (Auto) 2 Baso % (Auto) 1 Neut # (Auto) 6.8 Lymph # (Auto) 3.3 [place] # (Auto) 1.0 H Eos # (Auto) 0.2 Baso # (Auto) 0.1 Immature Gran # (Auto) 0.04 H Absolute Nucleated RBC 0.00 Immature Gran % 0 Nucleated RBC % 0 Sodium 139 Potassium 3.6 Chloride 104 Carbon Dioxide 25.9 Anion Gap 9 BUN 15 Creatinine 0.7 Estim Creat Clear Calc 103.2 eGFR > 60 BUN/Creatinine Ratio 21 H Glucose 101 Calculated Osmolality 278 Lactic Acid 1.2 Calcium 9.8 Corrected Calcium 9.8 Phosphorus Magnesium Total Bilirubin 0.4 AST 26 ALT 26 Alkaline Phosphatase 169 H Total Protein 7.5 Albumin 4.7 Globulin 2.8 Albumin/Globulin Ratio 1.7 Lipase 36 Ur Collection Type Clean Catch Urine Color Drk Red A Urine Clarity Clear Urine pH 5.5 Ur Specific [place] >= 1.030 Urine Protein 2+ A Urine Glucose (UA) Negative Urine Ketones Trace Urine Blood 3+ A Urine Nitrite Positive A Urine Bilirubin 1+ A Urine Urobilinogen (Auto) 1.0 Ur Leukocyte Esterase Trace Urine RBC 9050 H Urine WBC 3 Ur Squamous Epith Cells 8 H Amorphous Crystals Present A Urine Bacteria None Ur Culture Indicated? Yes Urine HCG, Qual Negative 04/25/25 05:04 WBC 13.3 H RBC 4.38 Hgb 12.7 Hct 37.9 MCV 87 MCH 29.0 MCHC 33.5 RDW Std Deviation 41.4 Plt Count 307 Neut % (Auto) 81 H Lymph % (Auto) 12 [place] % (Auto) 6 Eos % (Auto) 0 Baso % (Auto) 1 Neut # (Auto) 10.8 H Lymph # (Auto) 1.6 [place] # (Auto) 0.8 Eos # (Auto) 0.0 Baso # (Auto) 0.1 Immature Gran # (Auto) 0.07 H Absolute Nucleated RBC 0.00 Immature Gran % 1 H Nucleated RBC % 0 Sodium 137 Potassium 3.9 Chloride 104 Carbon Dioxide 23.3 Anion Gap 10 BUN 8 L Creatinine 0.6 Estim Creat Clear Calc 120.5 eGFR > 60 BUN/Creatinine Ratio 13 Glucose 154 H D Calculated Osmolality 275 Lactic Acid Calcium 8.7 Corrected Calcium 8.7 Phosphorus 2.5 Magnesium 1.8 Total Bilirubin 0.9 D AST 120 H ALT 69 H Alkaline Phosphatase 209 H D Total Protein 7.1 Albumin 4.2 D Globulin 2.9 Albumin/Globulin Ratio 1.4 Lipase Ur Collection Type Urine Color Urine Clarity Urine pH Ur Specific [place] Urine Protein Urine Glucose (UA) Urine Ketones Urine Blood Urine Nitrite Urine Bilirubin Urine Urobilinogen (Auto) Ur Leukocyte Esterase Urine RBC Urine WBC Ur Squamous Epith Cells Amorphous Crystals Urine Bacteria Ur Culture Indicated? Urine HCG, Qual Quality Measures Quality Measures none Assessment & Plan Assessment Current Active Medications: Generic Name Dose Route Start Last Admin Trade Name Freq PRN Reason Stop Dose Admin Acetaminophen 650 mg 04/24/25 22:32 Acetaminophen 325 Mg Tablet PO 05/24/25 22:31 Q6H PRN Fever >99.5 Acetaminophen 1,000 mg 04/24/25 22:32 Acetaminophen 325 Mg Tablet PO 05/24/25 22:31 Q6H PRN PAIN SCALE 1-3 (mild Hydralazine HCl 10 mg 04/25/25 07:21 Hydralazine Inj 20 Mg/Ml Vial IVP 05/25/25 07:29 Q6H PRN hypertension Sodium Chloride 1,000 mls @ 75 mls/hr 04/24/25 22:45 04/24/25 22:57 Ns IV 05/24/25 22:44 75 mls/hr .[id number] SEA Administration Morphine Sulfate 2 mg 04/24/25 22:39 04/24/25 22:57 Morphine Sulf Inj 10 Mg/Ml Vial IVP 04/29/25 22:38 2 mg Q4HR PRN Administration PAIN SCALE 4-10(Mod-Sev Ondansetron HCl 4 mg 04/24/25 22:32 04/24/25 22:58 Ondansetron Inj 2 Mg/Ml Inj 2 Ml IVP 05/24/25 22:31 4 mg Q6H PRN Administration NAUSEA OR VOMITING Protocol Pantoprazole Sodium 40 mg 04/25/25 09:00 04/25/25 08:01 Pantoprazole Inj 40 Mg Vial IVP 05/25/25 08:59 40 mg QDAY SEA Administration Plan Lalitha Mata is a 44-year-old female with a past medical history of hypertension who presented on 04/25 for progressive abdominal pain and admitted for incarcerated hernia for which general surgery was consulted. #Upper abdominal wall hernia defect contained incarcerated fat #Incarcerated ventral hernia s/p primary repair Presented with progressive, 9/10 abdominal pain with subjective chills. CT A/P showed abdominal wall hernia with corrected defect. Patient reported to be passing flatus and having BMs, denied nausea or vomiting. S/p primary repair of incarcerated ventral hernia via excision of preperitoneal fat and hernia sac without complications. ? General Surgery consulted, appreciate recommendations ? Full liquid diet ? Abdominal binder ? IV fluids as 75 cc/h ? Morphine switched to dilaudid for pain control #Hypertension Initially presented with BP 109/110, likely secondary to pain. ? Hydralazine 10 mg IV as needed ? Will resume home hydrochlorothiazide after procedure Hospital management: Disposition: general surgery consulted, OR for incarcerated hernia Fluids: NS at 75 cc/hr Diet: full liquid diet Lines: PIV DVT prophylaxis: SCDs GI prophylaxis: pantoprazole 40 mg IV daily CODE STATUS: full code ----- Plan discussed with attending physician Dr. Farooq Walker MD PGY-1 Internal Medicine Attending Provider Attestation/Addendum I attest that I was physically present for the evaluation, physical examination, lab and imaging review of the patient with the residents. I discussed the case with the residents and agree with the findings and plans of care as documented above. Patient is a 44 years old female with past medical history of hypertension who presented to the ED with complaint of abdominal pain. She was admitted overnight for management of upper abdominal wall hernia defect containing incarcerated fat. She underwent primary repair of incarcerated ventral hernia with general surgery today. Vital signs are stable except for mild hypertension. WBC noted to be slightly uptrending 13.3 from 11.5 yesterday, likely reactive. Chemistry panel showed AST 120, ALT 69 and ALP 209, CT abdomen/pelvis did not show any biliary dilation, gallbladder absent, we will monitor closely. Continues to be on pain regimen and as needed hydralazine for blood pressure control. Essence Trviedi MD
--- NOTE | 2025-04-25 11:52 | ESOP_ITS ---
Date of Procedure 04/25/25 Pre Op Diagnosis Incarcerated ventral hernia Post Op Diagnosis Incarcerated ventral hernia Procedure Primary repair of incarcerated ventral hernia Findings An approximately 1 cm mid epigastric ventral hernia with incarcerated omentum and preperitoneal fat Procedure Description Patient brought into the operating room and spine position. After administration of general endotracheal anesthesia, patient's abdomen prepped and draped in standard surgical manner. She was noted to have a mid epigastric ventral hernia that was incarcerated. After administration of local anesthesia 3 cm vertical incision was made over the hernia defect and dissection was deepened into soft tissue. The hernia sac was circumferentially dissected off surrounding tissue. The hernia sac and contents were relatively large to a size of golf ball, however the defect was approximately 1 cm in diameter. The hernia sac was opened the incarcerated preperitoneal fat and sac were excised and the omentum was reduced. The defect was primarily closed with interrupted sutures using 0 Ethibond. Deep soft tissue reapproximated with interrupted sutures using 2-0 Vicryl. Subcutaneous tissue closed with interrupted sutures using 3-0 Vicryl and the incision was closed with tiburcio. Sterile pressure dressings applied. Patient tolerated procedure well. She was extubated, breathing spontaneously without difficulty and was transferred to postanesthesia care in stable condition. Instruments, needles and sponge counts were reported to be correct x 2. Anesthesia GETA and local Pathology / specimen Other (Hernia sac and contents) Estimated Blood Loss 5 Condition Stable Disposition PACU Surgeon Andrea Anne MD Surgical Staff Operation Date: 04/25/25 11:00 Case Staff SVP RESEARCH AND STRATEGIC ANALYSIS: Jhon Mcdowell RNvenetian blind cleaner: Dylon Levi
--- NOTE | 2025-04-25 13:38 | PC.SS ---
Patient Lalitha Mata is a 44 Year old female admitted for Incarcerated Hernia. SS met with patient at bedside to discuss discharge plan and verify demographic information. Patient reports she lives at home with Family. Surrogate decision maker is her , Shawn Mata [phone]. Patient reports she does not utilize any source of DME to assist with ambulation, choice of pharmacy is [facility]. PCP is Favio Pugh. At time of discharge family will provide transportation. Next of kin: , Shawn Mata Discharge Plan: Home
[2025-04-25] MEDS: HYDROcodone/APAP 5/325 TABLET 1 TAB PO (13:41)
--- NOTE | 2025-04-25 14:55 | SUR.PHASEI ---
1156: Pt received in [facility] via gurney. Report from Keyshawn BOSS and Ming GREEN. Pt arrived with oral airway which was dc'd by PETER. Resp even, unlabored. VS stable. Dressing to mid abdomen dry, clean, intact. 1200: Pt had voided on self. Clean bedding and gown provided. 1220: Pt resting with no complaints voiced. Resp even, unlabored. VS stable. Dressing remains dry, clean, intact. Denies pain. 1240: Pt fully awake, oriented x3. No complaints voiced. Report to 3rd floor. Pt transferred to [facility] in stable condition.
[2025-04-25] MEDS: DOCUSATE SOD 100 MG CAPSULE PO (21:12)
[2025-04-26] VITALS: BP 126/76; PULSE 64; RESP 18; TEMP 36.3; O2SAT 94
[2025-04-26] MEDS: HYDROmorphone INJ 2 MG/ML VIAL 0.5 MG IVP (03:41)
[2025-04-26 04:00] VITALS: BP 124/75; PULSE 69; RESP 18; TEMP 36.4; O2SAT 94
[2025-04-26 05:25] LABS: Basophils % (Auto) 0 % (0-2.5); Eosinophils % (Auto) 0 % (0-10); Hematocrit 35.3 % (36.0-46.0); Immature Granulocytes % (Auto) 1 % (0-0); Immature Granulocytes Auto 0.11 Thou/mm3 (0.00-0.00); Lymphocytes # (Auto) 1.8 Thou/mm3 (1.0-4.8); Lymphocytes % (Auto) 11 % (10-50); Mean Corpuscular Hemoglobin 28.9 pg (25.0-35.0); Mean Corpuscular Volume 85 fL (80-100); Monocytes # (Auto) 1.1 Thou/mm3 (0.0-0.8); Monocytes % (Auto) 7 % (0-12); Neutrophils # (Auto) 12.5 Thou/mm3 (1.8-7.7); Neutrophils % (Auto) 80 % (37-80); Nucleated Red Blood Cell % 0 /100 WBC (0); Platelet Count 325 Thou/mm3 (140-440); RDW Standard Deviation 41.5 fL (36.4-46.3); Red Blood Count 4.15 Miln/mm3 (4.00-5.20); White Blood Count 15.5 Thou/mm3 (3.6-11.0)
[2025-04-26 05:47] LABS: Alanine Aminotransferase 48 U/L (10-49); Albumin, Serum 4.1 gm/dL (3.5-5.0); Albumin/Globulin Ratio 1.5 (1.2-2.2); Alkaline Phosphatase 204 U/L (46-116); Anion Gap 9 (7-16); Aspartate Amino Transferase 33 U/L (0-34); BUN/Creatinine Ratio 18 Ratio (12-20); Bilirubin,Total 0.7 mg/dL (0.3-1.2); Blood Urea Nitrogen 11 mg/dL (9-23); Calcium 8.9 mg/dL (8.3-10.6); Calcium (Corrected) 8.9 mg/dL (8.5-10.1); Carbon Dioxide 24.2 mMol/L (20.0-31.0); Chloride 105 mMol/L (98-107); Creatinine (Component) 0.6 mg/dL (0.6-1.3); Estimated Creatinine Clearance 120.5 mL/min (>60); Globulin 2.7 gm/dL (2.3-3.5); Glucose 144 mg/dL (74-106); Osmolality,Calculated 278 (275-295); Phosphorous 3.1 mg/dL (2.4-5.1); Potassium 3.8 mMol/L (3.4-5.1); Sodium 138 mMol/L (136-145); Total Protein 6.8 gm/dL (5.7-8.2); eGFR > 60 See Note
[2025-04-26 07:24] VITALS: PULSE 66; RESP 16; RESP 96
[2025-04-26 08:00] VITALS: BP 126/84; PULSE 67; RESP 18; TEMP 36.1; O2SAT 96
[2025-04-26] MEDS: PANTOPRAZOLE INJ 40 MG VIAL IVP (08:36)
[2025-04-26] MEDS: DOCUSATE SOD 100 MG CAPSULE PO (08:37)
[2025-04-26] MEDS: bisacodyL 10 MG SUPP PR (08:37)
[2025-04-26] MEDS: bisacodyL 5 MG TABEC 10 MG PO (08:38)
--- NOTE | 2025-04-26 11:20 | PD.RESDS ---
Planned Discharge Date 04/26/25 DS: Providers Provider Date of admission: 04/24/25 22:32 Primary care physician: Favio Pugh MD Admitting Provider: Qi Horn MD Attending Provider on Admission: Essence Trivedi MD Consults: 04/24/25 22:37 Consult to General Surgery Stat Comment: Consulting Provider: Andrea Anne Attending Provider on DC: Gaurang Walker MD Discharging Provider: Gaurang Walker MD DS: Diagnosis Problem List Completed Was Problem List Reviewed/Reconciled?: Yes Hospital Course Hospital Course Hospital course: Lalitha Mata is a 44-year-old female with a past medical history of hypertension who presented on 04/25 for progressive abdominal pain and admitted for incarcerated hernia for which general surgery was consulted. States she had been having abdominal pain three days prior to admission that progressively worsened and stated pain intensity was 9/10 with significant tenderness to palpation. She did have some associated chills but no nausea or vomiting and last BM was on day of admission and was nonbloody. General surgery was consulted and patient underwent primary repair of incarcerated ventral hernia with excision of preperitoneal fat and hernia sac without complications. Patient was monitored for one night after the procedure and was able to tolerate her meals, including regular diet, without significant discomfort or associated nausea/vomiting. WBC slightly uptrended but likely reactive in setting of recent procedure and no fevers overnight. Of note, urinalysis showed 9K RBC but patient states she is currently menstruating. Otherwise, vital signs stable, CBC largely unremarkable other than WBC already noted, and chem panel unremarkable and cleared discharge from surgical and medical perspective. Diagnoses during admission: #Upper abdominal wall hernia defect contained incarcerated fat #Incarcerated ventral hernia s/p primary repair #Hypertension Discharge instructions: ? Keep dressings intact for 3 days, then may remove and shower. Wear abdominal binder at all times. Avoid lifting, straining, pulling or pushing for 4 weeks. May take over the counter laxatives if no bowel movement in 2 days. ? Continue taking all home medications as prescribed ? Follow-up with Dr. Anne in 2 weeks, call [phone] for an appointment ? Follow-up with PCP within 1-2 weeks of discharge ? If you do not have a PCP, you can follow-up at the [facility] (you can call [phone] to make an appointment) ? If you wish to follow-up with Dr. Walker, schedule appointment on Wednesday ? Return to ED if symptoms worsen or recur ----- Plan discussed with attending physician Dr. Farooq Walker MD PGY-1 Internal Medicine Time Spent with Patient Time attestation: Total time spent providing and/or coordinating discharge services: Time spent: Less than 30 minutes Exam Vital Signs Temp Pulse Resp BP Pulse Ox O2 Del Method O2 Flow Rate 96.9 F 67 18 126/84 96 Room Air 5 04/26/25 08:00 04/26/25 08:00 04/26/25 08:00 04/26/25 08:00 04/26/25 08:00 04/26/25 08:00 04/25/25 12:15 Narrative Exam General: AOx3, no acute distress, able to speak full sentences HEENT: NC/AT, mucous membranes moist, bilateral sclera anicteric Cardiovascular: regular rate and rhythm, S1/S2 present, no murmurs appreciated Pulmonary: clear to auscultation bilaterally, no rales/rhonchi/wheezes Abdominal: abdominal incision with dressings, non-distended, non-tender Musculoskeletal: normal ROM, no peripheral edema Skin: warm and dry, intact, no rashes Neuro: CN II-XII intact, no focal deficits Discharge Plan Plan Patient Disposition: HOME (Self Care) Patient condition on transfer: Stable Care Plan Goals: ? Continue taking all home medications as prescribed ? Follow-up with general surgeon, Dr. Anne, within 1-2 weeks of discharge ? Follow-up with PCP within 1-2 weeks of discharge ? If you do not have a PCP, you can follow-up at the [facility] (you can call [phone] to make an appointment) ? If you wish to follow-up with Dr. Walker, schedule appointment on Wednesday ? Return to ED if symptoms worsen or recur -Continue tomando todos los medicamentos caseros nalini lo prescrito. -Seguimiento con el kumarupreet turner, Dr. Anne dentro de 1-2 semanas despues del chano. -Sequimiento con el medico de atencion primaria dentro de 1-2 semanas despues del chano. -Si no tiene medico de cabecera, puede [facility]ar [facility]. Llame al para programar ab gisella. -Si desea hacer un seguimiento con el Dr. Walker, programe ab gisella los miercoles por la tarde. -Regrese al departamento de emergencias si los sintomas empeoran o raparecen. Prescriptions/Referrals Prescriptions/Med Rec: New hydrocodone-acetaminophen 5-325 mg tablet 1 tab PO Q6H MDD 4 PRN (Reason: pain) Qty: 10 0RF docusate sodium [Colace] 100 mg capsule 100 mg PO BID Qty: 40 0RF ibuprofen 600 mg tablet 600 mg PO Q8H PRN (Reason: pain (scale score 4-6)) Qty: 15 0RF Continued hydrochlorothiazide 12.5 mg capsule 12.5 mg PO DAILY Referrals: Favio Pugh MD [Primary Care Provider] - Patient/Caregiver Discharge Instructions Education Materials: Hernia Repair Open Dc Print Language: Indian Activity Restrictions/Additional Instructions: Keep dressings intact for 3 days, then may remove and shower. Wear abdominal binder at all times. Avoid lifting, straining, pulling or pushing for 4 weeks. May take over the counter laxatives if no bowel movement in 2 days. Follow up with Dr. Anne in 2 weeks, call [phone] for an appointment. Mantengo los vendajes intactos carlito 3 mcmullen, luego puede retirarlos y ducharse. Use faja abdominal en todo momento. Evite levantar, hacer esfuerzos, tirar or empujar carlito 4 semanas. Puede maricel laxantes de venta gerber si no tiene evacuaciones intestinales en 2 mcmullen. Alex un seguimiento con el Dr. Anne en 2 semanas, llame al [phone] para programar ab gisella. Stand Alone Forms: Delia Award Info., Patient Portal Info Letter Discharge Order Discharge Orders: Discharge (Routine); Ordered 04/26/25 Ordered By: Gaurang Brewer [facility] Quality Discharge Quality Measures VTE prophylaxis Attestestation MD Attestation I attest that I was physically present for the evaluation, physical examination, lab and imaging review of the patient with the residents. I discussed the case with the residents and agree with the findings and plans of care as documented above. Essence Trivedi MD
[2025-04-26 12:00] VITALS: BP 143/90; PULSE 65; RESP 18; TEMP 36.6; O2SAT 97
--- NOTE | 2025-04-26 13:54 | PD.SURPROG ---
Documentation for date of: 04/26/25 Subjective Subjective Narrative: Patient is seen and examined. Pain is improving. She is tolerating diet well Exam Vital Signs Temp Pulse Resp BP Pulse Ox O2 Del Method O2 Flow Rate 97.9 F 65 18 143/90 H 97 Room Air 5 04/26/25 12:00 04/26/25 12:00 04/26/25 12:00 04/26/25 12:00 04/26/25 12:00 04/26/25 12:00 04/25/25 12:15 Constitutional Constitutional: no acute distress Routine Abdominal Exam Comments: Abdomen is soft and nondistended. Incision is clean, dry and intact Assessment & Plan Assessment Additional comments: Postop day #1 status post primary repair of incarcerated ventral hernia Plan May discharge home Procedures Procedures Primary repair of incarcerated ventral hernia
== END 2025-04-26 15:30 | disposition home or self-care (01) | DRG 227 ==
LOC: SERX 22:17 → SERHOLD 23:04 → S3NX 04-25 01:25
PROVIDERS: Physician Assistant; Physician Assistant Medical; Student in an Organized Health Care Education/Training Program; Surgery; Admitting Provider Student in an Organized Health Care Education/Training Program; Emergency Provider Emergency Medicine; PCP Family Medicine; Visit Provider Student in an Organized Health Care Education/Training Program
PROC: 0WQF0ZZ Repair Abdominal Wall, Open Approach (ICD-10-PCS; principal; 2025-04-25 10:45)
DX: K43.6 Other and unspecified ventral hernia with obstruction, without gangrene (principal); I10 Essential (primary) hypertension; E66.9 Obesity, unspecified; Z68.41 Body mass index [BMI] 40.0-44.9, adult; J45.909 Unspecified asthma, uncomplicated; Z90.49 Acquired absence of other specified parts of digestive tract
CPT/HCPCS: 36415; 74177; 80053; 81001; 81025; 83605; 83690; 83735; 84100; 85025; 87040; 87086; 94762; 96374; 96375; 99285; A4217; A4649; J0131; J0360; J0690; J1100; J1171; J2250; J2270; J2405; J2470; J2704; J3010; J3490; J7030; Q9967; A9270

== ENCOUNTER 2025-11-02 20:36 | Emergency (ER) | payer MEDICAID, SELFPAY ==
[2025-11-02 20:37] VITALS: BMI 36.6
--- NOTE | 2025-11-02 20:43 | EKG_ITS ---
[facility] Test Date: 2025-11-02 Pat Name: HERON POSADAS Department: Room: - Gender: Female Social Media Coordinator: : 1980 Requested By: Panchito Payne Order Number: [id number] Reading MD: Panchito Payne Measurements Intervals [place] Rate: 90 P: 51 SD: 153 QRS: 33 QRSD: 87 T: 31 QT: 368 QTc: 452 Interpretive Statements SINUS RHYTHM NONSPECIFIC T-WAVE ABNORMALITY Compared to ECG 02/19/2024 15:17:48 T-wave abnormality now present /store/S0/[id number].pdf
[2025-11-02 20:46] VITALS: BP 183/103; PULSE 90; RESP 18; TEMP 36.7; O2SAT 97
--- NOTE | 2025-11-02 20:54 | XR_ITS ---
EXAMINATION: PA chest single view TECHNIQUE: Upright PA chest single view Date and time: November 02, 2025, 2100 hours INDICATIONS: Coughing weakness shortness of breath today FINDINGS: Normal heart size Lungs are clear. Intact osseous structures IMPRESSION: No active disease
[2025-11-02 21:20] VITALS: BP 183/103; PULSE 90
[2025-11-02 21:49] LABS: Collection Type, Urine Clean Catch; WBC,Urine 0 /hpf (0-5)
[2025-11-02 21:52] LABS: Basophils # (Auto) 0.1 Thou/mm3 (0.0-0.2); Basophils % (Auto) 1 % (0-2.5); Eosinophils # (Auto) 0.1 Thou/mm3 (0.0-0.5); Eosinophils % (Auto) 1 % (0-10); Hematocrit 37.7 % (36.0-46.0); Hemoglobin 12.4 g/dL (12.0-16.0); Immature Granulocytes Auto 0.07 Thou/mm3 (0.00-0.00); Lymphocytes # (Auto) 2.3 Thou/mm3 (1.0-4.8); Lymphocytes % (Auto) 17 % (10-50); Mean Corpuscular HGB Conc 32.9 g/dl (31.0-37.0); Mean Corpuscular Hemoglobin 28.2 pg (25.0-35.0); Mean Corpuscular Volume 86 fL (80-100); Monocytes # (Auto) 0.9 Thou/mm3 (0.0-0.8); Monocytes % (Auto) 7 % (0-12); Neutrophils # (Auto) 9.8 Thou/mm3 (1.8-7.7); Neutrophils % (Auto) 74 % (37-80); Nucleated Red Blood Cell # 0.00 Thou/mm3 (0.00-0.00); Nucleated Red Blood Cell % 0 /100 WBC (0); Platelet Count 290 Thou/mm3 (140-440); RDW Standard Deviation 41.1 fL (36.4-46.3); Red Blood Count 4.40 Miln/mm3 (4.00-5.20); White Blood Count 13.3 Thou/mm3 (3.6-11.0)
[2025-11-02 22:07] LABS: Bilirubin,Urine Negative (Negative); Blood,Urine Negative (Negative); Clarity,Urine Clear (Clear/Hazy); Color,Urine Colorless (Lt Yel-Yel); Glucose, Urine Negative (Negative); Hyaline Casts,Urine < 1 /hpf (0-1); Ketones,Urine Negative (Negative); Leukocyte Esterase,Urine Negative (Negative); Nitrite,Urine Negative (Negative); PH,Urine 5.5 (5.0-7.0); Protein,Urine Negative (Neg - Trace); RBC,Urine 1 /hpf (0-3); Specific Gravity,Urine 1.014 (1.001-1.035); Squamous Epithelial Cell,Urine 1 /hpf (0-5); Urobilinogen,Urine Negative mg/dL (0.0-1.0)
[2025-11-02 22:09] LABS: Alanine Aminotransferase 25 U/L (10-49); Albumin, Serum 4.6 gm/dL (3.5-5.0); Albumin/Globulin Ratio 1.3 (1.2-2.2); Alkaline Phosphatase 213 U/L (46-116); Anion Gap 9 (7-16); Aspartate Amino Transferase 24 U/L (0-34); BUN/Creatinine Ratio 16 Ratio (12-20); Bilirubin,Total 0.3 mg/dL (0.3-1.2); Blood Urea Nitrogen 13 mg/dL (9-23); Calcium 9.8 mg/dL (8.3-10.6); Calcium (Corrected) 9.8 mg/dL (8.5-10.1); Carbon Dioxide 25.6 mMol/L (20.0-31.0); Chloride 103 mMol/L (98-107); Creatinine (Component) 0.8 mg/dL (0.6-1.3); Estimated Creatinine Clearance 95.0 mL/min (>60); Globulin 3.6 gm/dL (2.3-3.5); Glucose 127 mg/dL (74-106); Osmolality,Calculated 277 (275-295); Potassium 3.6 mMol/L (3.4-5.1); Sodium 138 mMol/L (136-145); Total Protein 8.2 gm/dL (5.7-8.2); Troponin I < 0.020 ng/mL (0.0-0.045); eGFR > 60 See Note
[2025-11-03 00:19] VITALS: BP 146/91; PULSE 78; RESP 19; O2SAT 97
--- NOTE | 2025-11-03 00:36 | EDNOTE_ITS ---
ED Chest Pain RME/HPI General Chief Complaint: Chest Pain Stated Complaint: CHEST PAIN Time Seen by Provider: 11/02/25 20:49 Source: patient Arrival date/time: 11/02/25 20:36 Mode of arrival: ambulatory Limitations: language barrier RME / HPI RME / HPI narrative: This patient is a pleasant 44-year-old Faroese-speaking only female who arrives to the ED today for evaluation of generalized chest pain concerns and cough as well as head numbness and bilateral hand numbness for the past day. Patient states that her symptoms began yesterday and have ebbed and flowed until they were continuous approximately 3 hours prior to arrival. Patient denies any fever nausea or vomiting. Patient does have a history of hypertension, but states that she does not take her medications because she does not believe they work. Patient's blood pressure at arrival was 183/101. Related Data Home Medications ?Medication ?Instructions ?Recorded ?Confirmed hydrochlorothiazide 12.5 mg capsule 12.5 mg PO DAILY 0 04/25/25 04/25/25 Previous Rx's ?Medication ?Instructions ?Recorded docusate sodium 100 mg capsule 100 mg PO BID #40 caps 04/26/25 (Colace) hydrocodone 5 mg-acetaminophen 325 1 tab PO Q6H PRN pa in #10 tabs 04/26/25 mg tablet ibuprofen 600 mg tablet 600 mg PO Q8H PRN pain (scal e 04/26/25 score 4-6) #15 tabs clonidine HCl 0.2 mg tablet 0.2 mg PO Q12H PRN hyperte nsive 11/03/25 emergency #10 tabs Allergies Allergy/AdvReac Type Severity Reaction Status Date / Time No Known Allergies Allergy Verified 04/25/25 12:21 Review of Systems Review of Systems Systems Reviewed: All systems reviewed, normal except as documented Past Medical History Past Medical History NEUROLOGIC: Negative Seizures CARDIAC: Positive Cardiac Disorders and Hypertension; Negative Congestive Heart Failure RESPIRATORY: Negative Chronic Obstructive Pulmonary Disease (COPD) or Asthma GASTROINTESTINAL: Positive Gall Bladder Disease GENITOURINARY: Negative Renal Disease ENDOCRINE: Negative Diabetes Mellitus Type 1 or Diabetes Mellitus Type 2 HEMATOLOGIC: Negative Sickle Cell Disease OTHER HISTORY: Negative Blood Transfusions or Anesthesia Reactions Family History FAMILY HISTORY: Negative Family Neurologic Problems, Family Psychiatric Problems, Family Respiratory Disorders, Family Cardiac Disorders, Family Gastrointestinal Problems, Family Cancer, Family Surgery or Family Anesthesia Reaction Social History SMOKING STATUS: Never smoker SUBSTANCE USE: does not use ED Exam Narrative Physical exam: Patient did not look toxic at time of evaluation. General Limitations: Present language barrier General appearance: Present alert and in distress (Patient is in mild distress due to forehead and head numbness as well as bilateral hand tingling.) Head Head exam: Present atraumatic Eye Eye exam: Present normal appearance, PERRL and EOMI ENT ENT exam: Present normal exam, normal oropharynx and mucous membranes moist Neck Neck exam: Present normal inspection, full ROM and trachea midline Chest Chest inspection: Present normal inspection and symmetric chest wall rise Respiratory Respiratory exam: Present normal lung sounds bilaterally Cardiovascular Cardiovascular exam: Present regular rate, normal rhythm and normal heart sounds Abdominal Exam Abdominal exam: Present soft and normal bowel sounds Extremities Exam Extremities exam: Present normal inspection and full ROM Back Exam Back exam: Present normal inspection and full ROM Neurological Exam Neurological exam: Present alert, oriented X3 and CN II-XII intact Psychiatric Psychiatric exam: Present normal affect and normal mood Skin Skin exam: Present warm, dry, intact and normal color Course Quality Measures none Orders Category Date Time Status EKG (ED ONLY) *Do not use* NOW Care 11/02/25 20:43 Completed EKG (ED Only) Stat Exams 11/02/25 20:43 Draft XR chest 1V portable Stat Exams 11/02/25 20:54 Completed CBC Stat Lab 11/02/25 21:40 Completed CMP [Comprehensive Metabolic Panel] Stat Lab 11/02/25 21:40 Completed Troponin I Stat Lab 11/02/25 21:40 Completed UA [Urinalysis] Stat Lab 11/02/25 20:17 Completed cloNIDine HCL [Catapres] Med 11/02/25 20:53 Discontinued 0.2 mg PO X1 ONE As noted above Vital Signs Vital signs: Vital Signs Temperature 98.0 F 11/02/25 20:46 Pulse Rate 90 11/02/25 20:46 Respiratory Rate 18 11/02/25 20:46 Blood Pressure 183/103 H 11/02/25 20:46 Pulse Oximetry (%) 97 11/02/25 20:46 Oxygen Delivery Method Room Air 11/02/25 20:46 As noted above Chest Pain MDM Narrative MDM Narrative:: Also has performed the ED were evaluated by me personally. Serum studies are unremarkable for any systemic concerns including unremarkable cardiac markers. Patient's EKG revealed a sinus rhythm with a nonspecific T wave abnormality noted. [place] interval of 153 and QT interval of 368. Chest x-ray was unremarkable for any consolidation or pulmonary concerns. I believe the patient's issues are related to her poorly controlled blood pressure. Patient's blood pressure was reduced to 146/91 at time of discharge and patient states her symptoms are nearly resolved. Advised patient follow-up with her primary care provider for discussions related to improve management and what is currently poorly controlled hypertension. Patient data External records reviewed:: [facility] previous records Clinical information provided by:: patient Social determinants that could affect healthcare access:: none Patient has the following chronic illnesses:: Hypertension How is presenting disease/condition affected by chronic disease/condition?: caused by Evaluation data The following diagnostics were reviewed and interpreted by me:: lab results, radiology exam(s) and EKG tracing(s) Lab and/or radiology exams considered but not ordered:: None Interpretation Summary: Hypertensive urgency Medications / Prescriptions Medications or Prescriptions considered but not ordered:: None Medication administrations:: Medication Administration History Discontinued Medications Clonidine (Clonidine Hcl 0.1 Mg Tablet) 0.2 mg PO X1 ONE Stop: 11/02/25 20:54 Last Admin: 11/02/25 21:20 Dose: 0.2 mg Documented By: CISCO As noted above Consultations Consultation(s) initiated? (list below): No Diagnosis Chest Pain Differential Diagnosis: other (Hypertensive urgency, pneumonia, viral upper respiratory illness, electrolyte abnormality, sepsis, UTI) Most likely diagnosis given after review of the tests above:: Hypertensive urgency Admission Indicated Admission indicated?: not indicated Explain why admission is indicated or not indicated:: Unwarranted Admission Request Was there a request for admission?: No Disposition Plan Disposition Plan: Discharge Discharge Attestation Discharge Attestation: The patient and all family members were given an opportunity to ask questions and understood the discharge instructions. Discharge instructions specifically effects, indications for sooner follow up or return to the emergency department, and the expected course of current diagnosis. Patient condition: Stable Discharge Plan Plan Patient Disposition: HOME (Self Care) Prescriptions/Referrals Prescriptions/Med Rec: New clonidine HCl 0.2 mg tablet 0.2 mg PO Q12H PRN (Reason: hypertensive emergency) Qty: 10 0RF Rx Instructions: To be used if systolic blood pressure is above 160 or diastolic pressure is above 90. No Action hydrochlorothiazide 12.5 mg capsule 12.5 mg PO DAILY hydrocodone-acetaminophen 5-325 mg tablet 1 tab PO Q6H MDD 4 PRN (Reason: pain) Qty: 10 0RF docusate sodium [Colace] 100 mg capsule 100 mg PO BID Qty: 40 0RF ibuprofen 600 mg tablet 600 mg PO Q8H PRN (Reason: pain (scale score 4-6)) Qty: 15 0RF Referrals: Favio Pugh MD [Primary Care Provider, Family Practice] - In 1 week Problem List Clinical Impression: Hypertension Patient/Caregiver Discharge Instructions Education Materials: Controlling High Blood Pressure Additional Instructions: Advised patient utilize clonidine as needed for symptomatic relief. Patient needs to follow-up with primary care provider for discussions related to improved management of what is currently poorly controlled hypertension. Print Language: Latvian Stand Alone Forms: Delia Award Info., Patient Portal Info Letter
== END 2025-11-03 00:52 | disposition home or self-care (01) ==
PROVIDERS: Physician Assistant; Emergency Provider Emergency Medicine; PCP Family Medicine
DX: I16.0 Hypertensive urgency (principal); I10 Essential (primary) hypertension; T50.2X6A Underdosing of carbonic-anhydrase inhibitors, benzothiadiazides and other diuretics, initial encounter; Z91.128 Patient's intentional underdosing of medication regimen for other reason
CPT/HCPCS: 36415; 71045; 80053; 81001; 84484; 85025; 93005; 99283; A9270